=== PATIENT | male | born 1960 | race Caucasian/White ===

== ENCOUNTER 2024-09-14 22:28 | Inpatient (IN) | payer OTHER ==
[~2024-09-14] VITALS: Ht 180.3 cm; Wt 70.5 kg
[2024-09-14 23:01] LABS: GLUCOMETER DEV NAME(LOC) ERT.6; GLUCOSE,POINT OF CARE 137 MG/DL (70-110)
[2024-09-15] MEDS: SODIUM CHLORIDE 0.9% 2,100 ML IV ONE (00:21)
[2024-09-15] MEDS: 0.9% SODIUM CHLORIDE 10 ML SYRINGE IVP PRN (00:21)
[2024-09-15 00:55] LABS: BASOPHILS % (AUTO) 1.2 % (0.0-2.0); EOSINOPHILS % (AUTO) 2.8 % (1.0-6.0); HEMATOCRIT 43.8 % (41-53); HEMOGLOBIN 14.7 g/dL (13.5-17.5); LYMPHOCYTES # (AUTO) 0.9 K/uL (1.0-4.8); LYMPHOCYTES % (AUTO) 14.5 % (22.0-44.0); MEAN CORPUSCULAR HEMOGLOBIN 30.6 pg (26.0-34.0); MEAN CORPUSCULAR HGB CONC 33.7 G/dL (31.0-37.0); MEAN CORPUSCULAR VOLUME 91 fL (80-100); MONOCYTES # (AUTO) 0.7 K/uL (0.1-1.0); MONOCYTES % (AUTO) 11.8 % (2.0-9.0); NEUTROPHILS # (AUTO) 4.2 K/uL (1.8-7.7); NEUTROPHILS % (AUTO) 69.7 % (40.0-70.0); PLATELET COUNT (AUTO) 43 K/uL (150-450); RED BLOOD CELL COUNT(AUTO) 4.83 MIL/uL (4.50-5.90); RED CELL DISTRIBUTION WIDTH 13.9 % (11.5-14.5)
[2024-09-15 01:02] LABS: PROTHROMBIN TIME 12.4 SEC (9.4-11.6)
[2024-09-15 01:08] LABS: TROPONIN I-HIGH SENSITIVITY 10 ng/L (<76)
[2024-09-15 01:10] LABS: ANION GAP 12 mmol/L (8-16); CALCIUM, TOTAL 9.3 mg/dL (8.8-10.5); CARBON DIOXIDE 22 mmol/L (22-29); CHLORIDE 105 mmol/L (98-107); CREATININE 0.96 mg/dL (0.60-1.30); GLOMERULAR FILTR. RATE CALC > 60 mL/min (>60); GLUCOSE,RANDOM 119 mg/dL (70-110); POTASSIUM 3.6 mmol/L (3.5-5.1); SODIUM SERUM 139 mmol/L (136-145); UREA NITROGEN, BLOOD 13 mg/dL (7-18)
[2024-09-15 01:15] LABS: ALANINE AMINOTRANSFERASE 46 U/L (12-78); ALBUMIN 2.8 g/dL (3.4-5.0); ALKALINE PHOSPHATASE 131 U/L (46-116); ASPARTATE AMINOTRANSFERASE 52 U/L (15-37); BILIRUBIN,TOTAL 1.2 mg/dL (0.1-1.0); TOTAL PROTEIN, SERUM 7.2 g/dL (6.4-8.2)
[2024-09-15 01:25] LABS: B-TYPE NATRIURETIC PEPTIDE 29 pg/mL (0-100)
[2024-09-15 01:26] LABS: LACTIC ACID 3.7 mmol/L (0.4-2.0)
[2024-09-15] MEDS: CefTRIAXone 1 GM/DEXTROSE 50 ML IV ONE (01:34)
[2024-09-15] MEDS ORDERED: MAGNESIUM HYDROXIDE SUSPENSION 30 ML UDCUP PO PRN (02:30)
[2024-09-15] MEDS ORDERED: ACETAMINOPHEN 325 MG TABLET PO PRN (02:30)
[2024-09-15] MEDS ORDERED: DEXTROSE 50%-WATER 25 GM/50 ML SYRINGE IVP PRN (02:30)
[2024-09-15] MEDS ORDERED: ZOLPIDEM TARTRATE 5 MG TABLET PO PRN (02:30)
[2024-09-15 04:13] LABS: PH,URINE DRUG SCREEN 7.5 (5.0-8.0)
[2024-09-15 04:14] LABS: APPEARANCE,URINE HAZY (CLEAR); BILIRUBIN,URINE NEGATIVE (NEGATIVE); COLOR,URINE YELLOW (YELLOW); GLUCOSE, URINE (UA) NEGATIVE (NEGATIVE); KETONES,URINE NEGATIVE (NEGATIVE); LEUKOCYTE ESTERASE ,URINE NEGATIVE (NEGATIVE); NITRATE,URINE NEGATIVE (NEGATIVE); OCCULT BLOOD,URINE NEGATIVE (NEGATIVE); PH,URINE 7.5 (5.0-8.0); PROTEIN,URINE 30-70 mg/dL (NEGATIVE); SPECIFIC GRAVITIY, URINE 1.013 (1.003-1.030)
[2024-09-15 04:22] LABS: ALCOHOL, URINE DRUG SCREEN NEGATIVE (NEGATIVE); AMPHET/METH SCREEN,URINE NEGATIVE (NEGATIVE); BARBITURATE SCREEN, URINE NEGATIVE (NEGATIVE); BENZODIAZEPINES SCREEN,URINE NEGATIVE (NEGATIVE); CANNABINOID SCREEN,URINE NEGATIVE (NEGATIVE); COCAINE SCREEN,URINE NEGATIVE (NEGATIVE); METHADONE SCREEN, URINE NEGATIVE (NEGATIVE); OPIATE SCREEN,URINE NEGATIVE (NEGATIVE); PHENCYCLIDINE SCREEN,URINE NEGATIVE (NEGATIVE)
[2024-09-15] MEDS: HEPARIN SODIUM,PORCINE 5,000 UNITS/ML VIAL SQ SCH (08:06)
[2024-09-15] MEDS: ASPIRIN 81 MG CHEWABLE TABLET PO SCH (08:06)
[2024-09-15] MEDS: FAMOTIDINE 20 MG TABLET PO SCH (08:06)
[2024-09-15] MEDS: AmLODIPine BESYLATE 5 MG TABLET PO SCH (08:06)
[2024-09-15 08:22] LABS: GLUCOMETER DEV NAME(LOC) ER.7; GLUCOSE,POINT OF CARE 111 MG/DL (70-110)
[2024-09-15 08:58] LABS: THYROID STIMULATING HORMONE 2.24 uIU/mL (0.36-3.74)
[2024-09-15] MEDS ORDERED: ACET-2247 PO (15:15)
[2024-09-15] MEDS ORDERED: AMLO-258 PO (15:15)
[2024-09-15] MEDS ORDERED: ZIPR80CA9 PO (15:15)
[2024-09-15] MEDS ORDERED: OMEP20 PO (15:15)
[2024-09-15] MEDS ORDERED: PRAV10TA39 PO (15:15)
[2024-09-15] MEDS ORDERED: LEVO112T4 PO (15:15)
[2024-09-15] MEDS ORDERED: LITH300C3 PO (15:15)
[2024-09-15] MEDS ORDERED: LENV1CAP PO (15:15)
[2024-09-15] MEDS ORDERED: SUCR1TAB2 PO (15:15)
[2024-09-15] MEDS ORDERED: PROP10TA73 PO (15:15)
[2024-09-15 16:38] VITALS: BP 159/96; PULSE 84; RESP 15; TEMP 98.7; O2SAT 98
[2024-09-15 19:21] VITALS: BP 175/110; PULSE 93; RESP 18; TEMP 98.1; O2SAT 99
[2024-09-15 20:11] LABS: GLUCOMETER DEV NAME(LOC) 6N.2B; GLUCOSE,POINT OF CARE 139 MG/DL (70-110)
[2024-09-15 20:11] LABS: GLUCOMETER DEV NAME(LOC) 6N.2B; GLUCOSE,POINT OF CARE 136 MG/DL (70-110)
[2024-09-15] MEDS ORDERED: LABETALOL HCL 5 MG/ML 20 ML VIAL IVP PRN (20:15)
[2024-09-15 20:45] LABS: GLUCOMETER DEV NAME(LOC) 6N.1B; GLUCOSE,POINT OF CARE 133 MG/DL (70-110)
[2024-09-15 21:45] VITALS: BP 147/90
[2024-09-16 05:25] VITALS: BP 146/88; PULSE 74; RESP 18; TEMP 98.6; O2SAT 100
[2024-09-16 06:46] LABS: GLUCOMETER DEV NAME(LOC) 6S.1D; GLUCOSE,POINT OF CARE 89 MG/DL (70-110)
[2024-09-16 06:49] VITALS: BP 159/64; PULSE 81; RESP 17; TEMP 97.6; O2SAT 95
[2024-09-16 07:30] VITALS: BP 138/93; PULSE 68; RESP 18; TEMP 97.8; O2SAT 100
[2024-09-16 12:51] LABS: GLUCOMETER DEV NAME(LOC) 6N.2B; GLUCOSE,POINT OF CARE 127 MG/DL (70-110)
[2024-09-16 18:21] LABS: GLUCOMETER DEV NAME(LOC) 6S.1D; GLUCOSE,POINT OF CARE 109 MG/DL (70-110)
[2024-09-16 20:02] VITALS: BP 125/85; PULSE 72; RESP 18; TEMP 98.5; O2SAT 98
[2024-09-16] MEDS: ZIPRASIDONE HCL 20 MG CAPSULE PO SCH (21:32)
[2024-09-17 05:30] VITALS: BP 124/67; PULSE 63; RESP 18; TEMP 98.4; O2SAT 97
[2024-09-17 07:55] LABS: GLUCOMETER DEV NAME(LOC) 6N.1B; GLUCOSE,POINT OF CARE 109 MG/DL (70-110)
[2024-09-17 08:15] VITALS: BP 114/64; PULSE 60; RESP 18; TEMP 98.5; O2SAT 97
[2024-09-17 11:40] LABS: GLUCOMETER DEV NAME(LOC) 6S.2; GLUCOSE,POINT OF CARE 131 MG/DL (70-110)
[2024-09-17] MEDS: ZIPRASIDONE HCL 40 MG CAPSULE PO SCH (16:24)
[2024-09-17] MEDS: INSULIN LISPRO 100 UNITS/ML SQ PRN (19:59)
[2024-09-17 20:00] VITALS: BP 126/86; PULSE 63; RESP 18; TEMP 97.6; O2SAT 99
[2024-09-18 04:00] VITALS: BP 127/80; PULSE 54; RESP 20; TEMP 98; O2SAT 99
[2024-09-18 06:30] LABS: GLUCOMETER DEV NAME(LOC) 6N.1B; GLUCOSE,POINT OF CARE 105 MG/DL (70-110)
[2024-09-18 09:35] VITALS: BP 119/76; PULSE 74; RESP 20; TEMP 98.7; O2SAT 99
[2024-09-18 11:25] LABS: GLUCOMETER DEV NAME(LOC) 6S.2; GLUCOSE,POINT OF CARE 156 MG/DL (70-110)
[2024-09-18 12:01] LABS: GLUCOMETER DEV NAME(LOC) 6N.2B; GLUCOSE,POINT OF CARE 129 MG/DL (70-110)
[2024-09-18] MEDS ORDERED: AMLO-257 PO (15:25)
[2024-09-18] MEDS ORDERED: ZIPR40CA38 PO (15:26)
[2024-09-18] MEDS ORDERED: ASPI-1444 PO (16:13)
[2024-09-18] MEDS ORDERED: FAMO20 PO (16:15)
[2024-09-18] MEDS ORDERED: MAGN-169 PO (16:17)
[2024-09-18] MEDS ORDERED: INSU100V SQ (16:49)
[2024-09-18 20:35] LABS: GLUCOMETER DEV NAME(LOC) 6S.1D; GLUCOSE,POINT OF CARE 102 MG/DL (70-110)
[2024-09-18 20:40] LABS: GLUCOMETER DEV NAME(LOC) 6S.2; GLUCOSE,POINT OF CARE 94 MG/DL (70-110)
== END 2024-09-18 21:35 | DRG 872 ==
LOC: EMS 22:28 → EDH 09-15 03:52 → 6S 09-15 09:28
PROVIDERS: ADMIT Internal Medicine; ATTEND Internal Medicine
PROC: GZ56ZZZ Individual Psychotherapy, Supportive (ICD-10-PCS; principal; 2024-09-15)
DX: A41.9 Sepsis, unspecified organism (principal); G93.49 Other encephalopathy; E11.9 Type 2 diabetes mellitus without complications; E03.9 Hypothyroidism, unspecified; F20.9 Schizophrenia, unspecified; I10 Essential (primary) hypertension; K74.60 Unspecified cirrhosis of liver; F29 Unspecified psychosis not due to a substance or known physiological condition
CPT/HCPCS: 70450; 71045; 80048; 80076; 80307; 81003; 82962; 83605; 83880; 84145; 84443; 84484; 85025; 85610; 87040; 93005; 99291; J0696; J1644; J7030; 36415-L1; 36415-TC